=== PATIENT | female | born 2000 | race African-American/Black ===

== ENCOUNTER → 2020-09-19 | Outpatient (CLI) | payer SELFPAY | END | disposition home or self-care (01) | LOC: COVID19 15:31 | PROVIDERS: ATTEND Internal Medicine | DX: Z20.828 Contact with and (suspected) exposure to other viral communicable diseases (principal) ==

== ENCOUNTER → 2020-10-31 | Outpatient (CLI) | payer OTHER | END | disposition home or self-care (01) | LOC: COVID19 13:57 | PROVIDERS: ATTEND Internal Medicine | DX: Z20.822 Contact with and (suspected) exposure to COVID-19 (principal) ==

== ENCOUNTER 2021-02-10 22:29 | Emergency (ER) | payer SELFPAY ==
[~2021-02-10] VITALS: Ht 157.4 cm; Wt 89.8 kg
[2021-02-11] MEDS ORDERED: CLARITIN10 MG PO (01:34)
[2021-02-11] MEDS ORDERED: TESSALON PERLE100 MG PO (01:34)
== END 2021-02-11 01:53 | disposition home or self-care (01) ==
LOC: ED 22:29
DX: J06.9 Acute upper respiratory infection, unspecified (principal)

== ENCOUNTER 2022-06-27 20:46 | Emergency (ER) | payer SELFPAY ==
[~2022-06-27] VITALS: Ht 157.4 cm; Wt 86.2 kg
[~2022-06-27 20:46] MED LIST: CLARITIN10 MG PO; TESSALON PERLE100 MG PO
== END 2022-06-27 22:15 | disposition home or self-care (01) ==
LOC: ED 20:46
DX: R50.9 Fever, unspecified (principal); Z20.822 Contact with and (suspected) exposure to COVID-19; R51.9 Headache, unspecified; R06.02 Shortness of breath; R09.81 Nasal congestion; Z79.899 Other long term (current) drug therapy

== ENCOUNTER 2023-02-15 19:44 | Emergency (ER) | payer SELFPAY ==
[~2023-02-15] VITALS: Ht 157.4 cm; Wt 95.3 kg
[2023-02-15] MEDS ORDERED: PREDNISONE20 M1 PO (20:30)
== END 2023-02-15 21:03 | disposition home or self-care (01) ==
LOC: ED 19:44
DX: L30.9 Dermatitis, unspecified (principal)

== ENCOUNTER 2024-01-12 14:46 | Emergency (ER) | payer BC ==
[~2024-01-12] VITALS: Ht 157.4 cm; Wt 97.5 kg
[~2024-01-12 14:46] MED LIST changes: +PREDNISONE20 M1 PO
[2024-01-12] MEDS ORDERED: AMOX-CLAV 875-1 EACH PO (15:03)
[2024-01-12 15:42] LABS: BILIRUBIN Negative (Negative); BLOOD Negative (Negative); CLARITY Clear (Clear); COLOR Yellow (Yellow); GLUCOSE Negative (Negative); KETONE Negative (Negative); LEUKO ESTERASE Negative (Negative); NITRITE Negative (Negative); SPECIFIC GRAVITY 1.015 (1.001-1.030); UROBILINOGEN 0.2 E.U./dl (0.0-1.0)
[2024-01-12 15:48] LABS: BACTERIA 1+
[2024-01-12] MEDS ORDERED: Amoxicillin/Clavulanate Pota 875 MG TAB PO ONE (15:55)
== END 2024-01-12 16:00 | disposition home or self-care (01) ==
LOC: ED 14:46
PROVIDERS: Emergency Medicine
DX: N39.0 Urinary tract infection, site not specified (principal)